=== PATIENT | female | born 1940 | race Caucasian/White ===

== ENCOUNTER 2019-03-01 10:42 | Inpatient (IN) ==
[2019-03-01] MEDS ORDERED: PROPOFOL 1,000 MG/100 ML BOTTLE IV ONE (13:44)
[2019-03-01] MEDS: PROPOFOL 1,000 MG/100 ML BOTTLE IV SCH ×2 (13:46→22:47)
[2019-03-01] MEDS ORDERED: ONDANSETRON 4 MG/2 ML VIAL IV PRN (13:54)
[2019-03-01] MEDS ORDERED: SODIUM CHLORIDE 0.9% 2,600 ML IV ONE (13:54)
[2019-03-01] MEDS ORDERED: ALBUTEROL 2.5 MG/3 ML NEB RESP TX PRN (13:54)
[2019-03-01] MEDS ORDERED: SODIUM CHLORIDE 0.9% 500 ML IV ONE (14:00)
[2019-03-01] MEDS ORDERED: SODIUM CHLORIDE 0.9% 500 ML IV SCH (14:00)
[2019-03-01 14:25] LABS: Allen Test Positive; Pt O2 Delivery Device Ventilator
[2019-03-01 14:27] LABS: ABG Base Excess -4.2 MMOL/L (-2.5-2.5); ABG Oxygen Saturation 99.4 % (95-100); ABG PCO2 56.3 MM HG (35-48); ABG PH 7.248 (7.35-7.45); ABG TCO2 21.3 MMOL/L (23-27)
[2019-03-01] MEDS ORDERED: SODIUM CHLORIDE 0.9% 1,000 ML IV SCH (14:30)
[2019-03-01 14:43] LABS: Basophils % 0.3 % (0.0-0.8); Eosinophils % 0.2 % (0.00-10.9); Hemoglobin 12.3 GM/DL (12.0-16.0); Immature Granulocytes % 0.5 %; Immature Granulocytes Absolute 0.04 #; Lymphocytes # 1.1 10*3/uL (1.4-4.0); Mean Corpuscular HGB Conc 27.1 GM/DL (32-36); Mean Corpuscular Volume 108.6 FL (87-102); Mean Platelet Volume 14.4 FL (9.6-12.0); Monocytes % 3.6 % (1.7-12.7); NRBC # 0.04 10*3/uL; Neutrophils % 82.4 % (38.7-73.9); Platelet Count 114 T/CUMM (130-400); Red Blood Count 4.18 MC/CUMM (3.8-5.5); White Blood Count 8.7 T/CUMM (4-12)
[2019-03-01 14:44] LABS: Hematocrit 45.4 VOL% (35.7-47.0)
[2019-03-01 14:56] LABS: Albumin 2.3 G/DL (3.4-5.0); Calcium 7.3 MG/DL (8.5-10.1); Osmolality,Calculated 339.8 MOS/KG (273-304)
[2019-03-01 15:53] LABS: ABG Base Excess -4.5 MMOL/L (-2.5-2.5); ABG HCO3 20.8 MMOL/L (20-26); ABG Oxygen Saturation 98.4 % (95-100); ABG PCO2 43.1 MM HG (35-48); ABG PH 7.312 (7.35-7.45)
[2019-03-01] MEDS: POTASSIUM CHLORIDE RIDER 10 MEQ in PREMIX 1 EACH IV PRN ×4 (16:17→20:23)
[2019-03-01] MEDS: ALBUTEROL/IPRATROPIUM 3 ML NEB RESP TX SCH ×3 (16:35→23:35)
[2019-03-01] MEDS: SODIUM CHLORIDE 23.4% CONC INJ 38.5 MEQ in STERILE WATER INJ 1,000 ML IV SCH (17:10)
[2019-03-01] MEDS: PIPERACILLIN/TAZOBACTAM 3,375 MG in SODIUM CHLORIDE 0.9% 100 ML IV SCH (18:21)
[2019-03-01 19:02] LABS: Band Neutrophils 2 % (0-10); Lymphocytes 10 % (20-55); Segmented Neutrophils 86 % (50-85); Total Cells Counted 100
[2019-03-01 19:04] LABS: Macrocytosis 3+; Platelet Estimate Adequate; Polychromasia Slight
[2019-03-01 19:17] LABS: Apearance,Urine CLEAR (Clear); Bacteria,Urine Occasional /HPF (Few); Bilirubin,Urine Negative (Negative); Blood, Urine Small mg/dL (Negative); Glucose,Urine (UA) Negative (Negative); Hyaline Casts,Urine 3 /LPF (0-3); Ketones,Urine Negative (Negative); Mucus,Urine Occasional /LPF (Occasional); Nitrite,Urine Negative (Negative); Protein,Urine 30 MG/DL; RBC,Urine 4 /HPF (0-4); Squamous Epithelial Cell,Urine Occasional /HPF (0-10); Urine Color Amber (Yellow); WBC,Urine 34 /HPF (0-6)
[2019-03-01] MEDS: ENOXAPARIN 40 MG/0.4 ML SYRINGE SUBCUT SCH (20:23)
[2019-03-01] MEDS: FAMOTIDINE 20 MG/2 ML VIAL IV SCH (20:23)
[2019-03-01] MEDS: PHENYLEPHRINE DRIP 40 MG/250 ML PREMIX IV PRN (20:30)
[2019-03-01] MEDS ORDERED: NOREPINEPHRINE 4 MG/4 ML VIAL IV ONE ×2 (22:31→22:32)
[2019-03-01] MEDS ORDERED: NOREPINEPHRINE 8 MG in SODIUM CHLORIDE 0.9% 242 ML IV PRN (22:37)
[2019-03-02] MEDS: POTASSIUM CHLORIDE RIDER 10 MEQ in PREMIX 1 EACH IV PRN ×2 (00:10→01:10)
[2019-03-02] MEDS: SODIUM CHLORIDE 23.4% CONC INJ 38.5 MEQ in STERILE WATER INJ 1,000 ML IV SCH ×3 (01:56→18:37)
[2019-03-02] MEDS: PIPERACILLIN/TAZOBACTAM 3,375 MG in SODIUM CHLORIDE 0.9% 100 ML IV SCH ×3 (01:57→18:27)
[2019-03-02] MEDS: ALBUTEROL/IPRATROPIUM 3 ML NEB RESP TX SCH ×6 (03:40→22:23)
[2019-03-02 04:22] LABS: ABG Base Excess -4.8 MMOL/L (-2.5-2.5); ABG HCO3 18.6 MMOL/L (20-26); ABG Oxygen Saturation 98.9 % (95-100); ABG PCO2 30.2 MM HG (35-48); ABG PH 7.408 (7.35-7.45); ABG PO2 160.9 MM HG (80-95); ABG TCO2 19.6 MMOL/L (23-27)
[2019-03-02 06:23] LABS: Amorphous Crystals,Urine Occasional /HPF (Few); Bacteria,Urine Occasional /HPF (Few); Granular Casts,Urine 5 /LPF (0-1); Mucus,Urine Occasional /LPF (Occasional); RBC,Urine 3 /HPF (0-4); Squamous Epithelial Cell,Urine Occasional /HPF (0-10); WBC,Urine 9 /HPF (0-6)
[2019-03-02 06:25] LABS: Apearance,Urine Cloudy (Clear); Protein,Urine >500 MG/DL; Urine Color Brown (Yellow); Urine Specific Gravity 1.015 (1.001-1.035)
[2019-03-02 06:26] LABS: Bilirubin,Urine Negative (Negative); Blood, Urine Large mg/dL (Negative); Glucose,Urine (UA) Negative (Negative); Ketones,Urine Negative (Negative); Nitrite,Urine Negative (Negative); Urine Urobilinogen 0.2 EU/DL (0.2-1.0)
[2019-03-02] MEDS: FAMOTIDINE 20 MG/2 ML VIAL IV SCH ×2 (09:53→20:37)
[2019-03-02] MEDS: LEVOFLOXACIN INJ 500 MG in PREMIX 1 EACH IV SCH (09:59)
[2019-03-02 11:24] LABS: Basophils # 0.1 10*3/uL (0.0-0.2); Basophils % 0.4 % (0.0-0.8); Eosinophils # 0.1 10*3/uL (0.0-0.87); Eosinophils % 0.4 % (0.00-10.9); Hematocrit 42.1 VOL% (35.7-47.0); Hemoglobin 12.2 GM/DL (12.0-16.0); Immature Granulocytes Absolute 0.14 #; Lymphocytes # 0.8 10*3/uL (1.4-4.0); Lymphocytes % 6.1 % (21.3-54.2); Mean Corpuscular Volume 101.4 FL (87-102); Monocytes % 4.5 % (1.7-12.7); NRBC # 0.18 10*3/uL; Neutrophils % 87.6 % (38.7-73.9); Red Blood Count 4.15 MC/CUMM (3.8-5.5); Red Cell Distribution Width 15.5 % (9.3-17.3); White Blood Count 13.5 T/CUMM (4-12)
[2019-03-02 11:25] LABS: Platelet Count 103 T/CUMM (130-400)
[2019-03-02 11:29] LABS: Anisocytosis 1+; Band Neutrophils 30 % (0-10); Lymphocytes 11 % (20-55); Nucleated Red Blood Cells 2 (0-5); Platelet Estimate Adequate; Segmented Neutrophils 54 % (50-85); Total Cells Counted 100
[2019-03-02 11:36] LABS: Calcium 7.9 MG/DL (8.5-10.1); Osmolality,Calculated 324.2 MOS/KG (273-304)
[2019-03-02] MEDS ORDERED: GLUCAGON 1 MG VIAL IM PRN (12:00)
[2019-03-02] MEDS ORDERED: DEXTROSE 50% 25 GM/50 ML VIAL IV PRN (12:00)
[2019-03-02] MEDS: PROPOFOL 1,000 MG/100 ML BOTTLE IV SCH ×2 (18:19→19:02)
[2019-03-02] MEDS: ENOXAPARIN 40 MG/0.4 ML SYRINGE SUBCUT SCH (20:40)
[2019-03-03] MEDS: SODIUM CHLORIDE 23.4% CONC INJ 38.5 MEQ in STERILE WATER INJ 1,000 ML IV SCH ×3 (02:42→20:05)
[2019-03-03] MEDS: PIPERACILLIN/TAZOBACTAM 3,375 MG in SODIUM CHLORIDE 0.9% 100 ML IV SCH ×3 (02:58→22:09)
[2019-03-03] MEDS: ALBUTEROL/IPRATROPIUM 3 ML NEB RESP TX SCH ×6 (03:09→22:37)
[2019-03-03 03:13] LABS: ABG Base Excess -3.9 MMOL/L (-2.5-2.5); ABG HCO3 21.2 MMOL/L (20-26); ABG Oxygen Saturation 99.4 % (95-100); ABG PCO2 32.1 MM HG (35-48); ABG PH 7.403 (7.35-7.45); ABG TCO2 17.8 MMOL/L (23-27)
[2019-03-03 03:56] LABS: Basophils # 0.1 10*3/uL (0.0-0.2); Basophils % 0.5 % (0.0-0.8); Eosinophils # 0.2 10*3/uL (0.0-0.87); Eosinophils % 1.2 % (0.00-10.9); Hematocrit 36.8 VOL% (35.7-47.0); Immature Granulocytes % 2.5 %; Immature Granulocytes Absolute 0.47 #; Lymphocytes # 1.2 10*3/uL (1.4-4.0); Lymphocytes % 6.5 % (21.3-54.2); Mean Corpuscular HGB Conc 29.6 GM/DL (32-36); Mean Corpuscular Volume 97.9 FL (87-102); Monocytes % 4.9 % (1.7-12.7); NRBC # 0.46 10*3/uL; Neutrophils % 84.4 % (38.7-73.9); Platelet Count 97 T/CUMM (130-400); Red Blood Count 3.76 MC/CUMM (3.8-5.5); Red Cell Distribution Width 15.8 % (9.3-17.3); White Blood Count 19.1 T/CUMM (4-12)
[2019-03-03 04:05] LABS: Calcium 7.9 MG/DL (8.5-10.1)
[2019-03-03] MEDS: POTASSIUM CHLORIDE RIDER 10 MEQ in PREMIX 1 EACH IV PRN ×2 (04:33→05:44)
[2019-03-03 04:38] LABS: Anisocytosis Slight; Band Neutrophils 3 % (0-10); Eosinophils 1 % (0-10); Lymphocytes 9 % (20-55); Metamyelocytes 1 %; Microcytosis Slight; Nucleated Red Blood Cells 5 (0-5); Segmented Neutrophils 82 % (50-85); Total Cells Counted 100
[2019-03-03 04:39] LABS: Platelet Estimate Decreased; Polychromasia Slight
[2019-03-03] MEDS: PROPOFOL 1,000 MG/100 ML BOTTLE IV SCH ×2 (05:51→17:00)
[2019-03-03] MEDS: FAMOTIDINE 20 MG/2 ML VIAL IV SCH ×2 (11:00→22:08)
[2019-03-03] MEDS: LEVOFLOXACIN INJ 500 MG in PREMIX 1 EACH IV SCH (11:03)
[2019-03-03] MEDS ORDERED: SODIUM BICARBONATE 50 MEQ/50 ML VIAL IV ONE (15:53)
[2019-03-03] MEDS: INSULIN REGULAR 100 UNIT/ML SUBCUT SCH (18:13)
[2019-03-03] MEDS: ENOXAPARIN 40 MG/0.4 ML SYRINGE SUBCUT SCH (22:08)
[2019-03-03] MEDS: PHENYLEPHRINE DRIP 40 MG/250 ML PREMIX IV PRN (23:04)
[2019-03-04] MEDS: INSULIN REGULAR 100 UNIT/ML SUBCUT SCH ×4 (01:40→18:08)
[2019-03-04] MEDS: PROPOFOL 1,000 MG/100 ML BOTTLE IV SCH ×3 (01:41→19:03)
[2019-03-04] MEDS: SODIUM CHLORIDE 23.4% CONC INJ 38.5 MEQ in STERILE WATER INJ 1,000 ML IV SCH ×4 (02:22→18:40)
[2019-03-04] MEDS: ALBUTEROL/IPRATROPIUM 3 ML NEB RESP TX SCH ×6 (02:26→23:55)
[2019-03-04 03:19] LABS: ABG Base Excess -6.3 MMOL/L (-2.5-2.5); ABG HCO3 19.3 MMOL/L (20-26); ABG Oxygen Saturation 99.6 % (95-100); ABG PCO2 35.3 MM HG (35-48); ABG PH 7.335 (7.35-7.45); ABG TCO2 16.9 MMOL/L (23-27)
[2019-03-04 03:29] LABS: Basophils # 0.1 10*3/uL (0.0-0.2); Basophils % 0.4 % (0.0-0.8); Eosinophils # 0.2 10*3/uL (0.0-0.87); Hematocrit 29.7 VOL% (35.7-47.0); Hemoglobin 8.9 GM/DL (12.0-16.0); Immature Granulocytes % 4.9 %; Immature Granulocytes Absolute 1.04 #; Lymphocytes # 1.7 10*3/uL (1.4-4.0); Lymphocytes % 7.7 % (21.3-54.2); Mean Corpuscular Volume 97.4 FL (87-102); Monocytes % 3.4 % (1.7-12.7); NRBC # 0.65 10*3/uL; Neutrophils % 82.6 % (38.7-73.9); Platelet Count 126 T/CUMM (130-400); Red Blood Count 3.05 MC/CUMM (3.8-5.5); Red Cell Distribution Width 16.2 % (9.3-17.3); White Blood Count 21.4 T/CUMM (4-12)
[2019-03-04 03:42] LABS: Calcium 7.3 MG/DL (8.5-10.1)
[2019-03-04] MEDS ORDERED: POTASSIUM CHLORIDE RIDER 100 ML IV ONE (03:48)
[2019-03-04] MEDS: POTASSIUM CHLORIDE RIDER 20 MEQ in PREMIX 1 EACH IV PRN (03:58)
[2019-03-04 04:05] LABS: Eosinophils 1 % (0-10); Hypochromasia 1+; Lymphocytes 9 % (20-55); Nucleated Red Blood Cells 2 (0-5); Platelet Estimate Adequate; Segmented Neutrophils 85 % (50-85); Total Cells Counted 100
[2019-03-04] MEDS: PHENYLEPHRINE DRIP 40 MG/250 ML PREMIX IV PRN ×5 (05:13→21:29)
[2019-03-04] MEDS: PIPERACILLIN/TAZOBACTAM 3,375 MG in SODIUM CHLORIDE 0.9% 100 ML IV SCH ×3 (06:27→21:47)
[2019-03-04] MEDS: FAMOTIDINE 20 MG/2 ML VIAL IV SCH ×2 (09:04→21:25)
[2019-03-04] MEDS: LEVOFLOXACIN INJ 500 MG in PREMIX 1 EACH IV SCH (09:06)
[2019-03-04] MEDS: POTASSIUM CHLORIDE RIDER 10 MEQ in PREMIX 1 EACH IV PRN (09:08)
[2019-03-04] MEDS: POTASSIUM CHLORIDE 20 MEQ/15 ML UDCUP PER TUBE SCH ×2 (09:56→13:02)
[2019-03-04] MEDS: FLUCONAZOLE INJ 200 MG in PREMIX 1 EACH IV SCH (09:56)
[2019-03-04] MEDS: ENOXAPARIN 40 MG/0.4 ML SYRINGE SUBCUT SCH (21:25)
[2019-03-05] MEDS: INSULIN REGULAR 100 UNIT/ML SUBCUT SCH ×4 (01:25→18:26)
[2019-03-05] MEDS: PHENYLEPHRINE DRIP 40 MG/250 ML PREMIX IV PRN ×3 (01:53→18:40)
[2019-03-05] MEDS: ALBUTEROL/IPRATROPIUM 3 ML NEB RESP TX SCH ×6 (03:30→23:16)
[2019-03-05] MEDS: PROPOFOL 1,000 MG/100 ML BOTTLE IV SCH ×3 (05:00→21:50)
[2019-03-05 05:19] LABS: ABG Base Excess -6.5 MMOL/L (-2.5-2.5); ABG HCO3 19.1 MMOL/L (20-26); ABG PCO2 34.3 MM HG (35-48); ABG TCO2 17.1 MMOL/L (23-27)
[2019-03-05 05:52] LABS: Basophils # 0.1 10*3/uL (0.0-0.2); Basophils % 0.6 % (0.0-0.8); Eosinophils # 0.5 10*3/uL (0.0-0.87); Eosinophils % 2.4 % (0.00-10.9); Hematocrit 29.7 VOL% (35.7-47.0); Hemoglobin 8.9 GM/DL (12.0-16.0); Immature Granulocytes % 5.4 %; Immature Granulocytes Absolute 1.07 #; Lymphocytes # 1.4 10*3/uL (1.4-4.0); Lymphocytes % 6.9 % (21.3-54.2); Mean Corpuscular Volume 97.4 FL (87-102); Monocytes % 4.5 % (1.7-12.7); NRBC # 0.68 10*3/uL; Neutrophils % 80.2 % (38.7-73.9); Platelet Count 107 T/CUMM (130-400); Red Blood Count 3.05 MC/CUMM (3.8-5.5); Red Cell Distribution Width 16.6 % (9.3-17.3); White Blood Count 19.9 T/CUMM (4-12)
[2019-03-05 06:16] LABS: Calcium 7.8 MG/DL (8.5-10.1); Osmolality,Calculated 305.1 MOS/KG (273-304)
[2019-03-05 06:23] LABS: Eosinophils 2 % (0-10); Hypochromasia 1+; Lymphocytes 4 % (20-55); Nucleated Red Blood Cells 3 (0-5); Ovalocytes Slight; Platelet Estimate Decreased; Segmented Neutrophils 90 % (50-85); Total Cells Counted 100
[2019-03-05] MEDS: PIPERACILLIN/TAZOBACTAM 3,375 MG in SODIUM CHLORIDE 0.9% 100 ML IV SCH ×3 (06:39→22:06)
[2019-03-05] MEDS: SODIUM BICARBONATE 650 MG TABLET PO SCH ×2 (08:33→20:06)
[2019-03-05] MEDS: FAMOTIDINE 20 MG/2 ML VIAL IV SCH ×2 (08:33→20:06)
[2019-03-05] MEDS: LEVOFLOXACIN INJ 500 MG in PREMIX 1 EACH IV SCH (08:33)
[2019-03-05] MEDS: FLUCONAZOLE INJ 200 MG in PREMIX 1 EACH IV SCH (09:49)
[2019-03-05] MEDS ORDERED: SODIUM CHLORIDE 0.9% IV ONE (13:00)
[2019-03-05] MEDS ORDERED: SODIUM PHOSPHATE IV ONE (13:00)
[2019-03-05] MEDS: SODIUM CHLORIDE 23.4% CONC INJ 38.5 MEQ in STERILE WATER INJ 1,000 ML IV SCH (17:15)
[2019-03-05] MEDS: ENOXAPARIN 40 MG/0.4 ML SYRINGE SUBCUT SCH (20:06)
[2019-03-06] MEDS: INSULIN REGULAR 100 UNIT/ML SUBCUT SCH ×4 (00:25→17:32)
[2019-03-06] MEDS: ALBUTEROL/IPRATROPIUM 3 ML NEB RESP TX SCH ×5 (02:45→19:59)
[2019-03-06] MEDS: PROPOFOL 1,000 MG/100 ML BOTTLE IV SCH ×4 (05:49→17:52)
[2019-03-06] MEDS: PIPERACILLIN/TAZOBACTAM 3,375 MG in SODIUM CHLORIDE 0.9% 100 ML IV SCH ×3 (05:49→21:55)
[2019-03-06 06:03] LABS: Basophils # 0.1 10*3/uL (0.0-0.2); Basophils % 0.4 % (0.0-0.8); Eosinophils # 0.4 10*3/uL (0.0-0.87); Eosinophils % 2.3 % (0.00-10.9); Hematocrit 26.4 VOL% (35.7-47.0); Hemoglobin 8.1 GM/DL (12.0-16.0); Immature Granulocytes % 8.8 %; Immature Granulocytes Absolute 1.58 #; Lymphocytes # 1.1 10*3/uL (1.4-4.0); Lymphocytes % 6.1 % (21.3-54.2); Mean Corpuscular HGB Conc 30.7 GM/DL (32-36); Mean Corpuscular Volume 95.7 FL (87-102); Monocytes % 5.8 % (1.7-12.7); Neutrophils % 76.6 % (38.7-73.9); Platelet Count 108 T/CUMM (130-400); Red Blood Count 2.76 MC/CUMM (3.8-5.5); Red Cell Distribution Width 17.1 % (9.3-17.3)
[2019-03-06 06:22] LABS: Calcium 8.1 MG/DL (8.5-10.1); Osmolality,Calculated 293.8 MOS/KG (273-304)
[2019-03-06 06:37] LABS: Band Neutrophils 8 % (0-10); Eosinophils 4 % (0-10); Lymphocytes 11 % (20-55); Platelet Estimate Decreased; Segmented Neutrophils 70 % (50-85); Total Cells Counted 100
[2019-03-06] MEDS: PHENYLEPHRINE DRIP 40 MG/250 ML PREMIX IV PRN ×2 (08:27→17:31)
[2019-03-06 09:22] LABS: ABG HCO3 20.3 MMOL/L (20-26); ABG Oxygen Saturation 99.3 % (95-100); ABG PCO2 31.4 MM HG (35-48); ABG PH 7.395 (7.35-7.45); ABG TCO2 17.9 MMOL/L (23-27)
[2019-03-06] MEDS: FAMOTIDINE 20 MG/2 ML VIAL IV SCH ×2 (09:44→21:54)
[2019-03-06] MEDS: SODIUM BICARBONATE 650 MG TABLET PO SCH ×2 (09:44→21:54)
[2019-03-06] MEDS: LEVOFLOXACIN INJ 500 MG in PREMIX 1 EACH IV SCH (09:44)
[2019-03-06] MEDS: FUROSEMIDE 40 MG/4 ML VIAL IV SCH (09:45)
[2019-03-06] MEDS: FLUCONAZOLE INJ 200 MG in PREMIX 1 EACH IV SCH (11:36)
[2019-03-06] MEDS: SODIUM CHLORIDE 23.4% CONC INJ 38.5 MEQ in STERILE WATER INJ 1,000 ML IV SCH (17:29)
[2019-03-06] MEDS: ENOXAPARIN 40 MG/0.4 ML SYRINGE SUBCUT SCH (21:54)
[2019-03-07] MEDS: PROPOFOL 1,000 MG/100 ML BOTTLE IV SCH ×4 (00:11→20:33)
[2019-03-07] MEDS: ALBUTEROL/IPRATROPIUM 3 ML NEB RESP TX SCH ×6 (00:12→20:18)
[2019-03-07] MEDS: INSULIN REGULAR 100 UNIT/ML SUBCUT SCH ×4 (00:48→17:49)
[2019-03-07] MEDS: PHENYLEPHRINE DRIP 40 MG/250 ML PREMIX IV PRN ×3 (02:29→20:32)
[2019-03-07 05:51] LABS: ABG Base Excess -1.9 MMOL/L (-2.5-2.5); ABG HCO3 22.8 MMOL/L (20-26); ABG PCO2 34.5 MM HG (35-48); ABG PH 7.416 (7.35-7.45); ABG TCO2 20.5 MMOL/L (23-27)
[2019-03-07] MEDS: SODIUM BICARBONATE 650 MG TABLET PO SCH ×2 (08:51→21:46)
[2019-03-07] MEDS: FAMOTIDINE 20 MG/2 ML VIAL IV SCH ×2 (08:51→21:45)
[2019-03-07] MEDS: LEVOFLOXACIN INJ 500 MG in PREMIX 1 EACH IV SCH (08:51)
[2019-03-07] MEDS: FUROSEMIDE 40 MG/4 ML VIAL IV SCH (08:51)
[2019-03-07] MEDS: PIPERACILLIN/TAZOBACTAM 3,375 MG in SODIUM CHLORIDE 0.9% 100 ML IV SCH ×2 (10:28→18:22)
[2019-03-07] MEDS: LACTATED RINGERS 1,000 ML IV SCH (10:51)
[2019-03-07] MEDS: FLUCONAZOLE INJ 200 MG in PREMIX 1 EACH IV SCH (14:25)
[2019-03-07] MEDS: ENOXAPARIN 40 MG/0.4 ML SYRINGE SUBCUT SCH (21:45)
[2019-03-08] MEDS: INSULIN REGULAR 100 UNIT/ML SUBCUT SCH ×4 (00:17→17:24)
[2019-03-08] MEDS: LACTATED RINGERS 1,000 ML IV SCH ×2 (00:29→15:35)
[2019-03-08] MEDS: ALBUTEROL/IPRATROPIUM 3 ML NEB RESP TX SCH ×7 (00:36→23:52)
[2019-03-08] MEDS: PIPERACILLIN/TAZOBACTAM 3,375 MG in SODIUM CHLORIDE 0.9% 100 ML IV SCH ×3 (02:28→18:04)
[2019-03-08] MEDS: PROPOFOL 1,000 MG/100 ML BOTTLE IV SCH ×4 (02:43→20:42)
[2019-03-08] MEDS: PHENYLEPHRINE DRIP 40 MG/250 ML PREMIX IV PRN ×3 (05:25→20:34)
[2019-03-08 05:54] LABS: ABG HCO3 24.4 MMOL/L (20-26); ABG Oxygen Saturation 98.2 % (95-100); ABG PCO2 42.8 MM HG (35-48); ABG PH 7.378 (7.35-7.45); ABG TCO2 23.1 MMOL/L (23-27)
[2019-03-08 05:56] LABS: Basophils # 0.2 10*3/uL (0.0-0.2); Basophils % 0.8 % (0.0-0.8); Eosinophils # 0.6 10*3/uL (0.0-0.87); Eosinophils % 3.1 % (0.00-10.9); Hematocrit 28.5 VOL% (35.7-47.0); Hemoglobin 8.7 GM/DL (12.0-16.0); Immature Granulocytes Absolute 1.98 #; Lymphocytes # 1.6 10*3/uL (1.4-4.0); Lymphocytes % 7.8 % (21.3-54.2); Mean Corpuscular HGB Conc 30.5 GM/DL (32-36); Mean Corpuscular Volume 94.1 FL (87-102); Mean Platelet Volume 13.9 FL (9.6-12.0); Monocytes % 4.1 % (1.7-12.7); NRBC # 0.22 10*3/uL; Neutrophils % 74.2 % (38.7-73.9); Platelet Count 160 T/CUMM (130-400); Red Blood Count 3.03 MC/CUMM (3.8-5.5); Red Cell Distribution Width 17.9 % (9.3-17.3); White Blood Count 19.9 T/CUMM (4-12)
[2019-03-08 06:15] LABS: Albumin 1.3 G/DL (3.4-5.0); Bilirubin,Total 0.8 MG/DL (0.2-1.0); Calcium 8.5 MG/DL (8.5-10.1); Osmolality,Calculated 296.4 MOS/KG (273-304)
[2019-03-08 06:21] LABS: Eosinophils 7 % (0-10); Lymphocytes 6 % (20-55); Metamyelocytes 1 %; Nucleated Red Blood Cells 2 (0-5); Segmented Neutrophils 82 % (50-85); Total Cells Counted 100
[2019-03-08 06:22] LABS: Hypochromasia 1+; Microcytosis 1+; Ovalocytes Slight; Polychromasia Slight
[2019-03-08 06:23] LABS: Platelet Estimate Adequate
[2019-03-08] MEDS: POTASSIUM CHLORIDE RIDER 20 MEQ in PREMIX 1 EACH IV PRN (06:37)
[2019-03-08] MEDS: FUROSEMIDE 40 MG/4 ML VIAL IV SCH (08:57)
[2019-03-08] MEDS: POTASSIUM CHLORIDE 20 MEQ/15 ML UDCUP PO SCH ×2 (08:57→20:34)
[2019-03-08] MEDS: SODIUM BICARBONATE 650 MG TABLET PO SCH ×2 (08:57→20:34)
[2019-03-08] MEDS: LEVOFLOXACIN INJ 500 MG in PREMIX 1 EACH IV SCH (08:57)
[2019-03-08] MEDS: FAMOTIDINE 20 MG/2 ML VIAL IV SCH ×2 (08:57→20:34)
[2019-03-08] MEDS: POTASSIUM CHLORIDE 20 MEQ/15 ML UDCUP PER TUBE SCH ×2 (11:50→15:05)
[2019-03-08] MEDS: FLUCONAZOLE INJ 200 MG in PREMIX 1 EACH IV SCH (14:11)
[2019-03-08] MEDS: ENOXAPARIN 40 MG/0.4 ML SYRINGE SUBCUT SCH (20:34)
[2019-03-09] MEDS: INSULIN REGULAR 100 UNIT/ML SUBCUT SCH ×4 (00:53→18:14)
[2019-03-09 04:07] LABS: ABG HCO3 27.1 MMOL/L (20-26); ABG Oxygen Saturation 98.7 % (95-100); ABG PCO2 41.2 MM HG (35-48); ABG PH 7.433 (7.35-7.45); ABG TCO2 25.4 MMOL/L (23-27)
[2019-03-09] MEDS: ALBUTEROL/IPRATROPIUM 3 ML NEB RESP TX SCH ×5 (04:07→19:24)
[2019-03-09] MEDS: PROPOFOL 1,000 MG/100 ML BOTTLE IV SCH ×4 (04:24→22:57)
[2019-03-09] MEDS: PHENYLEPHRINE DRIP 40 MG/250 ML PREMIX IV PRN ×3 (04:25→23:40)
[2019-03-09] MEDS: LACTATED RINGERS 1,000 ML IV SCH ×2 (04:33→17:55)
[2019-03-09 04:56] LABS: Calcium 8.4 MG/DL (8.5-10.1); Osmolality,Calculated 291.7 MOS/KG (273-304)
[2019-03-09] MEDS: LEVOFLOXACIN INJ 500 MG in PREMIX 1 EACH IV SCH (09:29)
[2019-03-09] MEDS: SODIUM BICARBONATE 650 MG TABLET PO SCH ×2 (09:29→20:48)
[2019-03-09] MEDS: FUROSEMIDE 40 MG/4 ML VIAL IV SCH (09:30)
[2019-03-09] MEDS: POTASSIUM CHLORIDE 20 MEQ/15 ML UDCUP PO SCH ×2 (09:30→20:23)
[2019-03-09] MEDS: FAMOTIDINE 20 MG/2 ML VIAL IV SCH ×2 (09:33→20:23)
[2019-03-09] MEDS: POTASSIUM CHLORIDE RIDER 20 MEQ in PREMIX 1 EACH IV PRN ×4 (09:40→20:25)
[2019-03-09] MEDS ORDERED: MAGNESIUM SULF RIDER 2 GM in PREMIX 1 EACH IV PRN (10:41)
[2019-03-09] MEDS ORDERED: MAGNESIUM SULF RIDER 4 GM in PREMIX 1 EACH IV PRN (10:41)
[2019-03-09] MEDS: FLUCONAZOLE INJ 200 MG in PREMIX 1 EACH IV SCH (13:41)
[2019-03-09] MEDS: POTASSIUM CHLORIDE RIDER 10 MEQ in PREMIX 1 EACH IV PRN (13:53)
[2019-03-09] MEDS: ENOXAPARIN 40 MG/0.4 ML SYRINGE SUBCUT SCH (20:23)
[2019-03-10] MEDS: ALBUTEROL/IPRATROPIUM 3 ML NEB RESP TX SCH ×6 (00:33→19:15)
[2019-03-10] MEDS: INSULIN REGULAR 100 UNIT/ML SUBCUT SCH ×4 (01:12→18:22)
[2019-03-10] MEDS: POTASSIUM CHLORIDE RIDER 20 MEQ in PREMIX 1 EACH IV PRN (02:00)
[2019-03-10 03:41] LABS: ABG Base Excess 5.4 MMOL/L (-2.5-2.5); ABG HCO3 29.3 MMOL/L (20-26); ABG Oxygen Saturation 98.4 % (95-100); ABG PH 7.451 (7.35-7.45); ABG TCO2 26.4 MMOL/L (23-27)
[2019-03-10] MEDS: PROPOFOL 1,000 MG/100 ML BOTTLE IV SCH ×4 (03:59→22:54)
[2019-03-10 05:19] LABS: Calcium 8.6 MG/DL (8.5-10.1); Osmolality,Calculated 291.7 MOS/KG (273-304)
[2019-03-10] MEDS: LACTATED RINGERS 1,000 ML IV SCH (07:20)
[2019-03-10] MEDS: PHENYLEPHRINE DRIP 40 MG/250 ML PREMIX IV PRN (08:59)
[2019-03-10] MEDS ORDERED: LEVOFLOXACIN INJ 500 MG in PREMIX 1 EACH IV SCH (09:00)
[2019-03-10] MEDS ORDERED: ALBUMIN 25% 25 GM in PREMIX 1 EACH IV ONE (09:09)
[2019-03-10] MEDS: BISACODYL 5 MG TABLET PO SCH (10:11)
[2019-03-10] MEDS: SODIUM BICARBONATE 650 MG TABLET PO SCH ×2 (10:11→21:20)
[2019-03-10] MEDS: FAMOTIDINE 20 MG/2 ML VIAL IV SCH ×2 (10:11→21:21)
[2019-03-10] MEDS: FUROSEMIDE 40 MG/4 ML VIAL IV SCH (10:11)
[2019-03-10] MEDS: POTASSIUM CHLORIDE 20 MEQ/15 ML UDCUP PO SCH ×2 (10:12→21:20)
[2019-03-10] MEDS: MEMANTINE 10 MG TABLET PO SCH ×2 (14:50→21:20)
[2019-03-10] MEDS: LEVOTHYROXINE 100 MCG TABLET PO SCH (14:50)
[2019-03-10] MEDS: SERTRALINE 100 MG TABLET PO SCH (14:50)
[2019-03-10] MEDS: ASPIRIN CHEW 81 MG TABLET PO SCH (14:50)
[2019-03-10] MEDS: PHENYLEPHRINE INJ 160 MG in SODIUM CHLORIDE 0.9% 234 ML IV PRN (17:20)
[2019-03-10] MEDS: DONEPEZIL 10 MG TABLET PO SCH (21:20)
[2019-03-10] MEDS: ENOXAPARIN 40 MG/0.4 ML SYRINGE SUBCUT SCH (21:22)
[2019-03-10] MEDS ORDERED: ALTEPLASE 2 MG VIAL INTRACATH ONE (21:58)
[2019-03-11] MEDS: ALBUTEROL/IPRATROPIUM 3 ML NEB RESP TX SCH ×7 (00:21→23:47)
[2019-03-11] MEDS: INSULIN REGULAR 100 UNIT/ML SUBCUT SCH ×4 (00:31→18:16)
[2019-03-11 03:58] LABS: ABG Base Excess 8.8 MMOL/L (-2.5-2.5); ABG Oxygen Saturation 98.6 % (95-100); ABG PCO2 38.5 MM HG (35-48); ABG PH 7.538 (7.35-7.45); ABG PO2 167.1 MM HG (80-95); ABG TCO2 33.2 MMOL/L (23-27)
[2019-03-11 04:02] LABS: Basophils # 0.1 10*3/uL (0.0-0.2); Basophils % 0.4 % (0.0-0.8); Eosinophils # 0.3 10*3/uL (0.0-0.87); Eosinophils % 1.6 % (0.00-10.9); Hematocrit 26.1 VOL% (35.7-47.0); Hemoglobin 8.1 GM/DL (12.0-16.0); Immature Granulocytes % 8.5 %; Immature Granulocytes Absolute 1.59 #; Lymphocytes # 1.8 10*3/uL (1.4-4.0); Lymphocytes % 9.8 % (21.3-54.2); Mean Corpuscular Volume 93.9 FL (87-102); Mean Platelet Volume 12.3 FL (9.6-12.0); Monocytes % 4.3 % (1.7-12.7); NRBC # 0.08 10*3/uL; Neutrophils % 75.4 % (38.7-73.9); Platelet Count 239 T/CUMM (130-400); Red Blood Count 2.78 MC/CUMM (3.8-5.5); Red Cell Distribution Width 17.5 % (9.3-17.3); White Blood Count 18.7 T/CUMM (4-12)
[2019-03-11 04:29] LABS: Hypochromasia Slight; Lymphocytes 4 % (20-55); Platelet Estimate Normal; Polychromasia Few; Segmented Neutrophils 91 % (50-85); Total Cells Counted 100
[2019-03-11 04:31] LABS: Calcium 8.8 MG/DL (8.5-10.1); Osmolality,Calculated 294.7 MOS/KG (273-304)
[2019-03-11] MEDS: PROPOFOL 1,000 MG/100 ML BOTTLE IV SCH ×3 (05:17→21:02)
[2019-03-11] MEDS: POTASSIUM CHLORIDE RIDER 20 MEQ in PREMIX 1 EACH IV PRN ×2 (05:43→09:59)
[2019-03-11] MEDS: FUROSEMIDE 40 MG/4 ML VIAL IV SCH (09:32)
[2019-03-11] MEDS: SERTRALINE 100 MG TABLET PO SCH (09:32)
[2019-03-11] MEDS: MEMANTINE 10 MG TABLET PO SCH ×2 (09:32→21:55)
[2019-03-11] MEDS: BISACODYL 5 MG TABLET PO SCH (09:32)
[2019-03-11] MEDS: LEVOTHYROXINE 100 MCG TABLET PO SCH (09:32)
[2019-03-11] MEDS: POTASSIUM CHLORIDE 20 MEQ/15 ML UDCUP PO SCH ×2 (09:32→22:03)
[2019-03-11] MEDS: ASPIRIN CHEW 81 MG TABLET PO SCH (09:32)
[2019-03-11] MEDS: FAMOTIDINE 20 MG/2 ML VIAL IV SCH ×2 (09:33→22:01)
[2019-03-11] MEDS: MEROPENEM 1,000 MG in SODIUM CHLORIDE 0.9% 100 ML IV SCH ×2 (09:46→17:59)
[2019-03-11] MEDS: MICAFUNGIN 100 MG in SODIUM CHLORIDE 0.9% 100 ML IV SCH (10:04)
[2019-03-11] MEDS: PHENYLEPHRINE INJ 160 MG in SODIUM CHLORIDE 0.9% 234 ML IV PRN ×2 (11:18→16:05)
[2019-03-11] MEDS: DONEPEZIL 10 MG TABLET PO SCH (21:55)
[2019-03-11] MEDS: ENOXAPARIN 40 MG/0.4 ML SYRINGE SUBCUT SCH (21:56)
[2019-03-12] MEDS: INSULIN REGULAR 100 UNIT/ML SUBCUT SCH ×3 (00:17→12:02)
[2019-03-12] MEDS: MEROPENEM 1,000 MG in SODIUM CHLORIDE 0.9% 100 ML IV SCH ×2 (00:21→10:26)
[2019-03-12] MEDS: ALBUTEROL/IPRATROPIUM 3 ML NEB RESP TX SCH ×4 (02:38→15:10)
[2019-03-12] MEDS: PHENYLEPHRINE INJ 160 MG in SODIUM CHLORIDE 0.9% 234 ML IV PRN (03:35)
[2019-03-12 04:19] LABS: ABG Base Excess 10.3 MMOL/L (-2.5-2.5); ABG HCO3 34.1 MMOL/L (20-26); ABG Oxygen Saturation 97.3 % (95-100); ABG PCO2 48.2 MM HG (35-48); ABG PH 7.473 (7.35-7.45); ABG PO2 88.7 MM HG (80-95); ABG TCO2 32.5 MMOL/L (23-27)
[2019-03-12 04:25] VITALS: BP 121/59
[2019-03-12 04:26] LABS: Basophils # 0.1 10*3/uL (0.0-0.2); Basophils % 0.3 % (0.0-0.8); Eosinophils # 0.5 10*3/uL (0.0-0.87); Eosinophils % 2.8 % (0.00-10.9); Hematocrit 28.4 VOL% (35.7-47.0); Hemoglobin 8.5 GM/DL (12.0-16.0); Immature Granulocytes % 5.3 %; Immature Granulocytes Absolute 0.97 #; Lymphocytes % 10.8 % (21.3-54.2); Mean Corpuscular HGB Conc 29.9 GM/DL (32-36); Mean Corpuscular Volume 95.9 FL (87-102); Mean Platelet Volume 11.3 FL (9.6-12.0); Monocytes % 4.2 % (1.7-12.7); NRBC # 0.08 10*3/uL; Neutrophils % 76.6 % (38.7-73.9); Platelet Count 264 T/CUMM (130-400); Red Blood Count 2.96 MC/CUMM (3.8-5.5); Red Cell Distribution Width 17.5 % (9.3-17.3); White Blood Count 18.2 T/CUMM (4-12)
[2019-03-12] MEDS: PROPOFOL 1,000 MG/100 ML BOTTLE IV SCH ×2 (04:28→13:52)
[2019-03-12 04:56] LABS: Band Neutrophils 2 % (0-10); Calcium 8.4 MG/DL (8.5-10.1); Lymphocytes 11 % (20-55); Osmolality,Calculated 297.4 MOS/KG (273-304); Prealbumin 9.8 MG/DL (20-40); Segmented Neutrophils 73 % (50-85); Total Cells Counted 100
[2019-03-12 04:57] LABS: Anisocytosis 1+; Eosinophils 10 % (0-10); Macrocytosis 1+; Platelet Estimate Normal
[2019-03-12] MEDS ORDERED: SODIUM CHLORIDE 0.45% 1,000 ML IV SCH (09:30)
[2019-03-12] MEDS: LEVOTHYROXINE 100 MCG TABLET PO SCH (10:26)
[2019-03-12] MEDS: SERTRALINE 100 MG TABLET PO SCH (10:26)
[2019-03-12] MEDS: ASPIRIN CHEW 81 MG TABLET PO SCH (10:26)
[2019-03-12] MEDS: MEMANTINE 10 MG TABLET PO SCH (10:26)
[2019-03-12] MEDS: FAMOTIDINE 20 MG/2 ML VIAL IV SCH (10:27)
[2019-03-12] MEDS: FUROSEMIDE 40 MG/4 ML VIAL IV SCH (10:27)
[2019-03-12] MEDS: POTASSIUM CHLORIDE 20 MEQ/15 ML UDCUP PO SCH (10:27)
[2019-03-12] MEDS: MICAFUNGIN 100 MG in SODIUM CHLORIDE 0.9% 100 ML IV SCH (11:10)
[2019-03-12] MEDS ORDERED: LORazepam 2 MG/1 ML VIAL ONE ×2 (17:03→17:40)
[2019-03-12] MEDS: LORazepam 2 MG/1 ML VIAL IV PRN ×5 (17:05→19:32)
[2019-03-12] MEDS: MORPHINE 4 MG/1 ML VIAL IV PRN ×5 (17:05→18:46)
[2019-03-12] MEDS ORDERED: MORPHINE 4 MG/1 ML VIAL IV PRN (18:42)
== END 2019-03-12 19:56 | disposition expired | DRG 870 ==
LOC: SUATTDRO 13:12 → SUPCPDRO 13:12 → N.CC 13:12
PROVIDERS: ADMIT Internal Medicine Nephrology; ATTEND Internal Medicine